=== PATIENT | female | born 1980 | race African-American/Black ===

== ENCOUNTER 2019-05-31 04:01 | Emergency (ER) | payer SELFPAY ==
[2019-05-31] MEDS ORDERED: Ketorolac Tromethamine 60 MG/2 ML VIAL ONE (05:05)
[2019-05-31 05:37] LABS: Bilirubin Negative (Negative); Blood, Urine Negative (Negative); Clarity Turbid (Clear); Glucose, Urine (Dipstick) Normal (Negative); Leukocyte Negative Leu/uL (Negative); Nitrite Negative (Negative); Protein, Urine (Dipstick) Negative (Neg-Trace); Urobilinogen Normal mg/dL (Less than 2)
[2019-05-31 05:47] LABS: Pregnancy Test - Urine (BHCG) Negative (Negative); Pregu Control Background? CLEAR/WHITE (CLR/WHITE); Pregu Control Bar Appear? YES (CONTROL BAR); Specific Gravity 1.019 (1.002-1.036)
== END 2019-05-31 06:07 | disposition home or self-care (01) ==
LOC: ERS 04:01
DX: M54.5 Low back pain (principal); F17.200 Nicotine dependence, unspecified, uncomplicated
CPT/HCPCS: 81003; 81025; 96372; 99283; J1885